=== PATIENT | male | born 1975 | race African-American/Black ===

== ENCOUNTER 2020-02-03 14:39 | Emergency (ER) | payer OTHER ==
[~2020-02-03] VITALS: Ht 185.4 cm; Wt 110.2 kg
[2020-02-03 14:49] VITALS: BP 141/78; Ht 185.4 cm; Wt 110.2 kg
== END 2020-02-03 15:26 | disposition home or self-care (01) ==
LOC: ED 14:39
DX: M54.6 Pain in thoracic spine (principal)